=== PATIENT | female | born 2000 | race Two or more races ===

== ENCOUNTER 2021-10-23 14:49 | Emergency (ER) | payer OTHER ==
[~2021-10-23] VITALS: Ht 157.5 cm; Wt 61.2 kg
[2021-10-23] MEDS ORDERED: PRENATABS RX T1 EACH (14:56)
[2021-10-23] MEDS ORDERED: CLOTRIMAZOLE 321 GM VAG (17:14)
[2021-10-23] MEDS ORDERED: METRONIDAZOLE500 MG PO (17:14)
== END 2021-10-23 17:20 | disposition home or self-care (01) ==
LOC: ER 14:49 → EMR PED 14:49 → ER 15:52
DX: O98.812 Other maternal infectious and parasitic diseases complicating pregnancy, second trimester (principal); Z3A.14 14 weeks gestation of pregnancy; B37.3 Candidiasis of vulva and vagina

== ENCOUNTER 2022-01-08 11:06 | Outpatient (CLI) | payer OTHER ==
[~2022-01-08 11:06] MED LIST: CLOTRIMAZOLE 321 GM VAG; METRONIDAZOLE500 MG PO; PRENATABS RX T1 EACH
== END 2022-01-08 12:15 | disposition home or self-care (01) ==
LOC: PRENATAL 11:06
PROVIDERS: ATTEND Obstetrics & Gynecology Maternal & Fetal Medicine
DX: O35.0XX0 Maternal care for (suspected) central nervous system malformation in fetus, not applicable or unspecified (principal); O35.3XX0 Maternal care for (suspected) damage to fetus from viral disease in mother, not applicable or unspecified; Z3A.20 20 weeks gestation of pregnancy

== ENCOUNTER 2022-01-17 15:46 | Emergency (ER) | payer OTHER ==
[~2022-01-17] VITALS: Ht 165.1 cm; Wt 61.2 kg
== END 2022-01-17 18:03 | disposition home or self-care (01) ==
LOC: ER 15:46
DX: O26.892 Other specified pregnancy related conditions, second trimester (principal); R51.9 Headache, unspecified; Z3A.22 22 weeks gestation of pregnancy

== ENCOUNTER 2022-02-28 13:54 | Emergency (ER) | payer OTHER ==
[~2022-02-28] VITALS: Ht 157.5 cm; Wt 65.8 kg
== END 2022-02-28 16:51 | disposition home or self-care (01) ==
LOC: ER 13:54
DX: O26.893 Other specified pregnancy related conditions, third trimester (principal); Z3A.28 28 weeks gestation of pregnancy; B34.9 Viral infection, unspecified